=== PATIENT | female | born 1990 | race Caucasian/White ===

== ENCOUNTER 2016-10-21 14:17 | Emergency (ER) | payer MEDICAID ==
[~2016-10-21] VITALS: Ht 160 cm; Wt 108.3 kg
[2016-10-21] MEDS ORDERED: ONDANSETRON 2MG/ML, 2ML ONE (14:49)
[2016-10-21] MEDS ORDERED: SODIUM CHLORIDE FLUSH 10ML SYR IVF ONE (15:00)
[2016-10-21] MEDS ORDERED: SODIUM CHLORIDE 0.9% 1,000ML IVBOLUS ONE (15:00)
[2016-10-21] MEDS ORDERED: ONDANSETRON 2MG/ML, 2ML IVPush ONE (15:00)
[2016-10-21 15:04] LABS: ASPARTATE AMINO TRANSFERASE 32 U/L (15-37); BLOOD UREA NITROGEN 10 mg/dL (7-18)
[2016-10-21 16:20] VITALS: BP 141/91
== END 2016-10-21 16:44 | disposition home or self-care (01) ==
LOC: ED 16:38
DX: K52.9 Noninfective gastroenteritis and colitis, unspecified (principal); N30.01 Acute cystitis with hematuria; R11.2 Nausea with vomiting, unspecified; R19.7 Diarrhea, unspecified
CPT/HCPCS: 36415; 80053; 81001; 84703; 85025; 87077; 87086; 96361; 96374; 99284; J2405; J7030; 87186

== ENCOUNTER 2017-03-04 08:20 | Emergency (ER) | payer MEDICAID ==
[~2017-03-04] VITALS: Ht 160 cm; Wt 109.7 kg
[2017-03-04] MEDS ORDERED: SODIUM CHLORIDE 0.9% 1,000 ML IV ONE (08:49)
[2017-03-04] MEDS ORDERED: ONDANSETRON 2MG/ML, 2ML IVPush ONE (09:00)
[2017-03-04] MEDS ORDERED: SODIUM CHLORIDE 0.9% 1,000ML IVBOLUS ONE (09:00)
[2017-03-04] MEDS ORDERED: SODIUM CHLORIDE FLUSH 10ML SYR IVF ONE (09:00)
[2017-03-04] MEDS ORDERED: ONDANSETRON 2MG/ML, 2ML ONE (09:07)
[2017-03-04 09:09] LABS: PATH.CAST-FLAG NOT PRESENT; SPERM-FLAG NOT PRESENT; SRC-FLAG NOT PRESENT; XTAL-FLAG NOT PRESENT; YLC-FLAG NOT PRESENT
[2017-03-04 09:13] LABS: HEMATOCRIT 40.6 % (34.6-47.8); WHITE BLOOD COUNT 6.4 x10^3/uL (3.4-10)
[2017-03-04 09:23] LABS: ASPARTATE AMINO TRANSFERASE 30 U/L (15-37); BLOOD UREA NITROGEN 9 mg/dL (7-18)
[2017-03-04 09:29] LABS: RAPID INFLUENZA A POSITIVE (Negative); RAPID INFLUENZA B Negative (Negative)
[2017-03-04 11:13] VITALS: BP 128/68
== END 2017-03-04 11:15 | disposition home or self-care (01) ==
LOC: ED 09:03
DX: J09.X2 Influenza due to identified novel influenza A virus with other respiratory manifestations (principal); R11.2 Nausea with vomiting, unspecified; R19.7 Diarrhea, unspecified; J18.9 Pneumonia, unspecified organism
CPT/HCPCS: 36415; 74022; 80053; 81001; 84703; 85025; 87400; 96361; 96374; 99285; J2405; J7030

== ENCOUNTER 2017-08-09 15:41 | Emergency (ER) | payer MEDICAID ==
[~2017-08-09] VITALS: Ht 160 cm; Wt 116.0 kg
[2017-08-09] MEDS ORDERED: ONDANSETRON ODT 4 MG ONE ×3 (16:22→19:49)
[2017-08-09] MEDS ORDERED: DIPH,PERTUSS(ACELL),TET VAC/PF 0.5 ML IM-VACC ONE ×2 (16:23→16:30)
[2017-08-09] MEDS ORDERED: MORPHINE SULFATE 4 MG/ML, 1ML ONE ×2 (16:23→17:56)
[2017-08-09] MEDS ORDERED: MORPHINE SULFATE 4 MG/ML, 1ML IVPush PRN (16:30)
[2017-08-09] MEDS ORDERED: ONDANSETRON ODT 4 MG PO ONE ×2 (16:30→19:00)
[2017-08-09 16:49] LABS: BASOPHILS # (AUTO) 0.07 x10^3/uL (0-0.1); BASOPHILS % (AUTO) 1 % (0-1); EOSINOPHILS % (AUTO) 4 % (1-7); LYMPHOCYTES # (AUTO) 2.25 x10^3/uL (1-3.4); LYMPHOCYTES % (AUTO) 20 % (22-44); MD NO; MEAN CORPUSCULAR HEMOGLOBIN 28.1 pg (27.0-34.8); MEAN CORPUSCULAR HGB CONC 33.9 g/dL (32.4-35.8); MEAN CORPUSCULAR VOLUME 82.9 fL (80-100); MEAN PLATELET VOLUME 6.7 fL (7.4-10.4); MONOCYTES # (AUTO) 0.49 x10^3/uL (0.2-0.8); MONOCYTES % (AUTO) 4 % (2-9); NEUTROPHILS # (AUTO) 8.19 x10^3/uL (1.8-6.8); NEUTROPHILS % (AUTO) 72 % (42-75); PLATELET COUNT 440 x10^3/uL (130-400); RED BLOOD COUNT 4.77 x10^6/uL (3.82-5.3); RED CELL DISTRIBUTION WIDTH 13.6 % (9.6-15.2)
[2017-08-09 16:56] LABS: ALBUMIN 3.4 g/dL (3.4-5.0); ANION GAP 8 mmol/L (5-15); CALCIUM 8.3 mg/dL (8.5-10.1); CHLORIDE 110 mmol/L (98-107); CREATININE 0.66 mg/dL (0.55-1.02)
[2017-08-09] MEDS: KETAMINE 100 MG/ML, 5ML IV ONE (17:02)
[2017-08-09] MEDS ORDERED: PREN1TAB60 PO (17:06)
[2017-08-09] MEDS ORDERED: BACITRACIN ZINC OINT 500U/GM, 0.9 GM ONE ×2 (17:13→17:14)
[2017-08-09] MEDS ORDERED: KETAMINE 10 MG/ML, 20ML ONE (17:35)
[2017-08-09] MEDS ORDERED: LEVOFLOXACIN/PMX 750MG/150ML 150 ML IV ONE (18:30)
[2017-08-09] MEDS ORDERED: LEVOFLOXACIN/PMX 750MG/150ML 150 ML ONE (18:38)
[2017-08-09 19:06] VITALS: BP 190/96
== END 2017-08-09 20:20 | disposition home or self-care (01) ==
LOC: ED 20:00
DX: S82.851A Displaced trimalleolar fracture of right lower leg, initial encounter for closed fracture (principal); S82.251A Displaced comminuted fracture of shaft of right tibia, initial encounter for closed fracture; S82.61XA Displaced fracture of lateral malleolus of right fibula, initial encounter for closed fracture; E66.9 Obesity, unspecified; W18.39XA Other fall on same level, initial encounter; Y93.I9 Activity, other involving external motion; Y92.488 Other paved roadways as the place of occurrence of the external cause; Y99.8 Other external cause status
CPT/HCPCS: 12041; 27818; 27825; 36415; 73600; 73610; 80048; 82040; 84703; 85025; 90715; 96365; 96366; 96372; 96375; 99152; 99153; 99285; J1956; Q0162

== ENCOUNTER 2018-04-02 10:50 | Emergency (ER) | payer MEDICAID ==
[~2018-04-02] VITALS: Ht 160 cm; Wt 120.0 kg
[~2018-04-02 10:50] MED LIST: PREN1TAB60 PO
[2018-04-02 10:54] VITALS: BP 140/69
--- NOTE | 2018-04-02 11:45 | NUR ---
Patient/Caregiver given discharge instructions and they have confirmed that they understand the instructions. Patient ambulatory with steady gait.
== END 2018-04-02 11:48 | disposition home or self-care (01) ==
LOC: ED 11:40
DX: J06.9 Acute upper respiratory infection, unspecified (principal)
CPT/HCPCS: 71046; 99283

== ENCOUNTER 2019-03-04 10:44 | Emergency (ER) | payer MEDICAID ==
[~2019-03-04] VITALS: Ht 160 cm; Wt 123.6 kg
[2019-03-04 10:48] VITALS: BP 152/77
== END 2019-03-04 12:29 ==
LOC: ED 12:23
DX: D17.79 Benign lipomatous neoplasm of other sites (principal); R19.03 Right lower quadrant abdominal swelling, mass and lump; Z87.891 Personal history of nicotine dependence; Z72.89 Other problems related to lifestyle
CPT/HCPCS: 76705; 99284

== ENCOUNTER 2019-09-07 16:15 | Emergency (ER) | payer MEDICAID ==
[~2019-09-07] VITALS: Ht 160 cm; Wt 122.7 kg
[2019-09-07 16:27] VITALS: BP 173/94
[2019-09-07 17:13] LABS: BASOPHILS % (AUTO) 1 % (0-1); EOSINOPHILS # (AUTO) 0.32 x10^3/uL (0-0.4); EOSINOPHILS % (AUTO) 3 % (1-7); LYMPHOCYTES # (AUTO) 2.89 x10^3/uL (1-3.4); LYMPHOCYTES % (AUTO) 27 % (22-44); MD NO; MEAN CORPUSCULAR HEMOGLOBIN 28.5 pg (27.0-34.8); MEAN CORPUSCULAR HGB CONC 33.6 g/dL (32.4-35.8); MEAN CORPUSCULAR VOLUME 84.7 fL (80-100); MEAN PLATELET VOLUME 6.9 fL (7.4-10.4); MONOCYTES # (AUTO) 0.47 x10^3/uL (0.2-0.8); MONOCYTES % (AUTO) 5 % (2-9); NEUTROPHILS # (AUTO) 6.79 x10^3/uL (1.8-6.8); NEUTROPHILS % (AUTO) 64 % (42-75); PLATELET COUNT 501 x10^3/uL (130-400); RED BLOOD COUNT 5.03 x10^6/uL (3.82-5.3); RED CELL DISTRIBUTION WIDTH 13.6 % (9.6-15.2)
[2019-09-07 17:21] LABS: ANION GAP 9 mmol/L (5-15); CALCIUM 8.8 mg/dL (8.5-10.1); CHLORIDE 106 mmol/L (98-107); CREATININE 0.74 mg/dL (0.55-1.02)
[2019-09-07 17:37] LABS: MICROSCOPIC AUTO
== END 2019-09-07 17:59 | disposition home or self-care (01) ==
LOC: ED 17:37
DX: N92.0 Excessive and frequent menstruation with regular cycle (principal); N92.1 Excessive and frequent menstruation with irregular cycle; R10.9 Unspecified abdominal pain; R10.2 Pelvic and perineal pain; E66.9 Obesity, unspecified; Z68.42 Body mass index [BMI] 45.0-49.9, adult
CPT/HCPCS: 36415; 76830; 80048; 81001; 82040; 84702; 85025; 86850; 86900; 99284

== ENCOUNTER 2019-11-16 11:52 | Emergency (ER) | payer MEDICAID ==
[~2019-11-16] VITALS: Ht 160 cm; Wt 122.0 kg
[2019-11-16 11:54] VITALS: BP 140/57
--- NOTE | 2019-11-16 12:03 | NUR ---
ERP TO BEDSIDE.
--- NOTE | 2019-11-16 12:10 | NUR ---
PT GIVEN ICE PACK, UPDATED ON POC. WILL CONTINUE TO MONITOR.
== END 2019-11-16 12:59 | disposition home or self-care (01) ==
LOC: ED 12:51
DX: S63.653A Sprain of metacarpophalangeal joint of left middle finger, initial encounter (principal); Z87.891 Personal history of nicotine dependence; W19.XXXA Unspecified fall, initial encounter; Y93.89 Activity, other specified; Y92.098 Other place in other non-institutional residence as the place of occurrence of the external cause; Y99.8 Other external cause status
CPT/HCPCS: 29130; 99283

== ENCOUNTER 2020-01-23 07:00 | Emergency (ER) | payer MEDICAID ==
[~2020-01-23] VITALS: Ht 160 cm; Wt 123.0 kg
[2020-01-23 07:06] VITALS: BP 142/90
--- NOTE | 2020-01-23 07:28 | NUR ---
PROVIDED WITH BONE WAX REVIEWED MEDICATION PLAN PROVIDED WITH DENTIST LIST-REVIEWED
== END 2020-01-23 07:32 | disposition home or self-care (01) ==
LOC: ED 07:31
DX: K04.7 Periapical abscess without sinus (principal)
CPT/HCPCS: 99283

== ENCOUNTER 2020-02-14 15:46 | Emergency (ER) | payer MEDICAID ==
[~2020-02-14] VITALS: Ht 160 cm; Wt 123.8 kg
[2020-02-14 15:56] VITALS: BP 150/70
--- NOTE | 2020-02-14 19:50 | NUR ---
BIN PACKER: PROXY CHART FOR [employer] PT. NIL WHEN CALLED FOR VS.
--- NOTE | 2020-02-14 20:21 | NUR ---
BUILDING RENTAL SUPERINTENDENT: NIL X 2 WHEN CALLED FOR ROOM.
--- NOTE | 2020-02-14 20:44 | NUR ---
GROUP INSURANCE SPECIALIST: NIL X 3 WHEN CALLED FOR ROOM.
== END 2020-02-14 20:47 | disposition left against medical advice (07) ==
LOC: ED 20:30
DX: J01.90 Acute sinusitis, unspecified (principal); R51.9 Headache, unspecified
CPT/HCPCS: 99281

== ENCOUNTER 2020-05-05 18:29 | Emergency (ER) | payer MEDICAID ==
[~2020-05-05] VITALS: Ht 157.5 cm; Wt 124.0 kg
[2020-05-05 18:49] VITALS: BP 137/95
== END 2020-05-05 19:13 | disposition home or self-care (01) ==
LOC: ED 19:00
DX: K02.9 Dental caries, unspecified (principal); K08.89 Other specified disorders of teeth and supporting structures
CPT/HCPCS: 99283

== ENCOUNTER 2020-05-07 17:33 | Emergency (ER) | payer MEDICAID ==
[~2020-05-07] VITALS: Ht 160 cm; Wt 125.1 kg
[2020-05-07 17:35] VITALS: BP 159/68
--- NOTE | 2020-05-07 18:51 | NUR ---
REPORT GIVEN TO DAVID
== END 2020-05-07 19:02 | disposition home or self-care (01) ==
LOC: ED 18:00
DX: K02.9 Dental caries, unspecified (principal)
CPT/HCPCS: 99282

== ENCOUNTER 2020-05-15 19:28 | Emergency (ER) | payer MEDICAID ==
[~2020-05-15] VITALS: Ht 160 cm; Wt 125.8 kg
[2020-05-15 19:33] VITALS: BP 126/71
[2020-05-15] MEDS ORDERED: HYDROcodone/APAP 5/325 TABLET ONE (19:49)
[2020-05-15] MEDS ORDERED: HYDROcodone/APAP 5/325 TABLET PO ONE (20:00)
== END 2020-05-15 20:19 | disposition home or self-care (01) ==
LOC: ED 19:45
DX: K02.9 Dental caries, unspecified (principal)
CPT/HCPCS: 99283

== ENCOUNTER 2020-05-21 18:44 | Emergency (ER) | payer MEDICAID ==
[~2020-05-21] VITALS: Ht 160 cm; Wt 125.0 kg
--- NOTE | 2020-05-21 19:01 | NUR ---
PROVIDER AT BEDSIDE AT THIS TIME
[2020-05-21] MEDS ORDERED: MECLIZINE CHEWABLE 25 MG TAB ONE (19:25)
[2020-05-21] MEDS ORDERED: MECLIZINE CHEWABLE 25 MG TAB PO ONE (19:30)
[2020-05-21 19:32] LABS: BASOPHILS % (AUTO) 1 % (0-1); EOSINOPHILS % (AUTO) 4 % (1-7); LYMPHOCYTES % (AUTO) 30 % (22-44); MD NO; MEAN CORPUSCULAR HEMOGLOBIN 28.6 pg (27.0-34.8); MEAN CORPUSCULAR HGB CONC 34.5 g/dL (32.4-35.8); MEAN PLATELET VOLUME 6.4 fL (7.4-10.4); MONOCYTES % (AUTO) 6 % (2-9); NEUTROPHILS % (AUTO) 60 % (42-75); PLATELET COUNT 437 x10^3/uL (130-400); RED BLOOD COUNT 4.49 x10^6/uL (3.82-5.3); RED CELL DISTRIBUTION WIDTH 13.3 % (9.6-15.2)
[2020-05-21 19:38] VITALS: BP 128/76
[2020-05-21 19:49] LABS: ALBUMIN 3.4 g/dL (3.4-5.0); ANION GAP 6 mmol/L (5-15); CALCIUM 8.1 mg/dL (8.5-10.1); CHLORIDE 108 mmol/L (98-107); CREATININE 0.62 mg/dL (0.55-1.02)
--- NOTE | 2020-05-21 20:35 | NUR ---
pt able to walk to bathroom, ambulated with steady gait and good balance returned safely to bed pt states that dizziness is resolved, reports feeling better. no signs or symptoms of acute distress noted respirations even and unlabored
== END 2020-05-21 21:04 | disposition home or self-care (01) ==
LOC: ED 20:30
DX: R42 Dizziness and giddiness (principal); R00.2 Palpitations; R06.02 Shortness of breath; R94.31 Abnormal electrocardiogram [ECG] [EKG]
CPT/HCPCS: 36415; 80048; 82040; 84703; 85025; 93005; 99284

== ENCOUNTER 2020-07-23 14:02 | Emergency (ER) | payer MEDICAID ==
[~2020-07-23] VITALS: Ht 160 cm; Wt 124.7 kg
[2020-07-23 14:36] VITALS: BP 140/85
== END 2020-07-23 15:37 | disposition home or self-care (01) ==
LOC: ED 15:25
DX: K02.9 Dental caries, unspecified (principal); R51.9 Headache, unspecified; Z72.9 Problem related to lifestyle, unspecified
CPT/HCPCS: 99283

== ENCOUNTER 2020-07-27 08:10 | Emergency (ER) | payer MEDICAID ==
[~2020-07-27] VITALS: Ht 160 cm; Wt 127.0 kg
[2020-07-27 08:21] VITALS: BP 159/88
--- NOTE | 2020-07-27 08:45 | NUR ---
PATIENT WALKED BACK FROM TRIAGE WITH CHIEF C/O RIGHT-SIDED TOOTH PAIN XFEW MONTHS. PER PATIENT PAIN IS GETTING WORSE. PATIENT HAS APPT NEXT MONTH TO HAVE TOOTH PULLED. LIZETN, ACCOMPANIED BY MOM, CALL LIGHT WITHIN REACH.
== END 2020-07-27 10:04 | disposition home or self-care (01) ==
LOC: ED 08:42
DX: K08.89 Other specified disorders of teeth and supporting structures (principal)
CPT/HCPCS: 99283

== ENCOUNTER 2020-09-08 12:45 | Emergency (ER) | payer MEDICAID ==
[~2020-09-08] VITALS: Ht 160 cm; Wt 126.8 kg
[2020-09-08 12:53] VITALS: BP 150/91
== END 2020-09-08 13:09 | disposition home or self-care (01) ==
LOC: ED 13:00
DX: K02.9 Dental caries, unspecified (principal); K08.89 Other specified disorders of teeth and supporting structures; L03.115 Cellulitis of right lower limb
CPT/HCPCS: 99283